=== PATIENT | female | born 1965 | race African-American/Black ===

== ENCOUNTER 2025-03-03 20:12 | Inpatient (IN) | payer MEDICAID, OTHER ==
[~2025-03-03] VITALS: Ht 149.9 cm; Wt 74.0 kg
[2025-03-03] MEDS: SODIUM CHLORIDE 0.9% (SEPSIS BOLUS) IV ONE (21:08)
[2025-03-03] MEDS: CEFTRIAXONE 1GM/50ML 50 ML IV ONE (21:14)
[2025-03-03 21:28] LABS: BASOPHILS % 0.5 % (0.0-2.0); EOSINOPHILS % 2.4 % (0.0-5.0); HEMATOCRIT. 40.3 % (36.0-48.0); HEMOGLOBIN. 13.1 g/dL (12.0-16.0); MEAN CORPUSCULAR HEMOGLOBIN 28.8 pg (28.0-32.0); MEAN CORPUSCULAR HGB CONC 32.6 g/dL (31.0-37.0); MEAN CORPUSCULAR VOLUME 88.2 fL (81.0-99.0); MONOCYTES % 4.8 % (2.0-8.0); NEUTROPHILS % 56.3 % (40.0-76.0); PLATELET 268 x1000/uL (130-400); RED BLOOD CELL COUNT 4.57 mill/uL (4.2-5.4); RED CELL DISTRIBUTION WIDTH 14.4 % (11.6-14.6); WHITE BLOOD COUNT 6.5 x1000/uL (4.5-11.0)
[2025-03-03 21:44] LABS: CHLORIDE 111 mEq/L (98-107); POTASSIUM 3.3 mEq/L (3.5-5.1); SODIUM 143 mEq/L (136-145)
[2025-03-03 21:45] LABS: CARBON DIOXIDE 20 mEq/L (21-32)
[2025-03-03 21:50] LABS: CREATININE 1.2 mg/dL (0.6-1.0); GLUCOSE 158 mg/dL (70-105); UREA NITROGEN BLOOD 18 mg/dL (9-23)
[2025-03-03 21:54] LABS: TROPONIN I HIGH SENSITIVITY < 4 ng/L (3.0-34)
[2025-03-03 22:38] LABS: INR 1.2; PROTHROMBIN TIME 12.9 sec (9.6-11.0)
[2025-03-04 00:25] LABS: TROPONIN I HIGH SENSITIVITY < 4 ng/L (3.0-34)
[2025-03-04 00:26] LABS: CLARITY URINE CLEAR (CLEAR); COLOR URINE YELLOW (YELLOW); GLUCOSE URINE NEGATIVE (NEGATIVE); KETONES URINE TRACE (NEGATIVE); LEUKOCYTE ESTERASE URINE TRACE (NEGATIVE); NITRITE URINE NEGATIVE (NEGATIVE); OCCULT BLOOD URINE NEGATIVE (NEGATIVE); PH URINE 5.5 (4.5-8.0); PROTEIN URINE TRACE (NEGATIVE); SPECIFIC GRAVITY URINE 1.021 (1.005-1.030)
[2025-03-04 00:43] LABS: BACTERIA URINE TRACE; HYALINE CASTS URINE 0-5 /lpf; RBC URINE NONE SEEN /hpf (0-2); SQUAMOUS EPITHELIAL CELL URINE FEW /lpf (RARE/1+); WBC URINE NONE SEEN /hpf (0-2)
[2025-03-04 02:15] VITALS: BP 86/64; PULSE 90; RESP 18; RESP 20; TEMP 36.3
[2025-03-04 04:00] VITALS: BP 129/73; PULSE 89; RESP 18; TEMP 36.7; O2SAT 94
[2025-03-04] MEDS: SODIUM CHLORIDE 0.9% 1,000 ML IV SCH (06:40)
[2025-03-04 08:00] VITALS: BP 120/78; PULSE 82; RESP 16; TEMP 36.7; O2SAT 98
[2025-03-04] MEDS: FAMOTIDINE 20MG TABLET PO SCH (08:32)
[2025-03-04] MEDS: ASPIRIN 81MG TABLET PO SCH (08:32)
[2025-03-04 12:00] VITALS: BP_SYST 140; BP_SYST 146; BP_DIAS 100; BP_DIAS 90; BP_DIAS 95; PULSE 62; RESP 18; TEMP 36.6; O2SAT 99
[2025-03-04] MEDS: POTASSIUM CHLORIDE 20MEQ/PACKET PO NR (13:19)
[2025-03-04 16:00] VITALS: BP 132/84; PULSE 66; RESP 18; TEMP 36.4; O2SAT 98
[2025-03-04] MEDS: TRAMADOL 50MG TABLET PO PRN (17:27)
[2025-03-04 19:09] LABS: *AMPHETAMINES SCREEN URINE NEGATIVE (NEGATIVE); *BARBITURATES SCREEN URINE NEGATIVE (NEGATIVE); *BENZODIAZEPINES SCREEN URINE NEGATIVE (NEGATIVE); *COCAINE SCREEN URINE NEGATIVE (NEGATIVE)
[2025-03-04 19:10] LABS: METHADONE URINE SCREEN NEGATIVE (NEGATIVE); OPIATES URINE SCREEN NEGATIVE (NEGATIVE); PHENCYCLIDINE URINE SCREEN NEGATIVE (NEGATIVE)
[2025-03-04 19:11] LABS: CANNABINOID URINE SCREEN NEGATIVE (NEGATIVE); ECSTASY MDMA SCREEN URINE NEGATIVE (NEGATIVE)
[2025-03-04 19:43] LABS: BASOPHILS % 0.7 % (0.0-2.0); EOSINOPHILS % 2.4 % (0.0-5.0); HEMATOCRIT. 34.5 % (36.0-48.0); HEMOGLOBIN. 11.3 g/dL (12.0-16.0); LYMPHOCYTES % 45.4 % (20.0-50.0); MEAN CORPUSCULAR HEMOGLOBIN 28.8 pg (28.0-32.0); MEAN CORPUSCULAR HGB CONC 32.8 g/dL (31.0-37.0); MEAN CORPUSCULAR VOLUME 87.8 fL (81.0-99.0); MEAN PLATELET VOLUME 9.6 fl (7.4-10.4); NEUTROPHILS % 44.5 % (40.0-76.0); PLATELET 201 x1000/uL (130-400); RED BLOOD CELL COUNT 3.93 mill/uL (4.2-5.4); RED CELL DISTRIBUTION WIDTH 14.5 % (11.6-14.6); WHITE BLOOD COUNT 5.7 x1000/uL (4.5-11.0)
[2025-03-04 19:47] LABS: CHLORIDE 112 mEq/L (98-107); POTASSIUM 4.2 mEq/L (3.5-5.1); SODIUM 145 mEq/L (136-145)
[2025-03-04 19:48] LABS: CALCIUM 8.7 mg/dL (8.7-10.4); CARBON DIOXIDE 25 mEq/L (21-32)
[2025-03-04 19:53] LABS: CREATININE 0.8 mg/dL (0.6-1.0); GLUCOSE 86 mg/dL (70-105); UREA NITROGEN BLOOD 12 mg/dL (9-23)
[2025-03-04 19:54] LABS: ALANINE AMINOTRANSFERASE 7 IU/L (10-49); ALBUMIN 3.7 g/dL (3.2-4.8); ASPARTATE AMINOTRANSFERASE 14 IU/L (<34)
[2025-03-04 19:56] LABS: BILIRUBIN TOTAL 0.4 mg/dL (0.1-1.0); PROTEIN TOTAL 6.3 g/dL (6.0-8.3)
[2025-03-04 20:00] VITALS: BP 144/83; PULSE 62; RESP 17; TEMP 36.8; O2SAT 97
[2025-03-05] VITALS: BP 151/86; PULSE 64; RESP 16; TEMP 36.7; O2SAT 97
[2025-03-05 04:00] VITALS: BP 151/90; PULSE 59; RESP 17; TEMP 36.7; O2SAT 99
[2025-03-05 08:00] VITALS: BP 146/88; PULSE 62; RESP 19; TEMP 36.4
[2025-03-05] MEDS: DOCUSATE SODIUM 250MG CAPSULE PO SCH (11:46)
[2025-03-05 12:00] VITALS: BP 146/76; PULSE 60; RESP 18; TEMP 36.5
[2025-03-05] MEDS ORDERED: LACTULOSE 20G/30ML UDC PO SCH (12:00)
[2025-03-05 15:10] VITALS: BP 146/70; PULSE 60; TEMP 97.7; O2SAT 95
== END 2025-03-05 15:29 | disposition home or self-care (01) | DRG 73 ==
LOC: ER 20:12 → 5WST 03-04 00:12 → ENRESERV 03-04 00:44
PROVIDERS: ADMIT Internal Medicine; ATTEND Internal Medicine
DX: G90.89 Other disorders of autonomic nervous system (principal); N17.0 Acute kidney failure with tubular necrosis; E87.6 Hypokalemia; F19.10 Other psychoactive substance abuse, uncomplicated; F17.210 Nicotine dependence, cigarettes, uncomplicated; I10 Essential (primary) hypertension; I95.9 Hypotension, unspecified; Z79.899 Other long term (current) drug therapy
CPT/HCPCS: 36415; 71045; 80048; 80053; 80305; 81003; 82962; 83605; 84145; 84484; 85025; 93005; 93306; 99285; J0696; J7030